=== PATIENT | female | born 1960 | race Caucasian/White ===

== ENCOUNTER 2023-09-03 14:39 | Emergency (ER) | payer SELFPAY ==
[~2023-09-03] VITALS: Ht 157 cm; Wt 79.3 kg
[~2023-09-03 14:39] MED LIST: FENO54TA PO; GLYB5TAB6 PO; METFOR850T PO; MTF500T PO; PNT40TEC PO; PRV20T PO
--- NOTE | 2023-09-03 15:26 | ED Fall/Injury ---
General Chief Complaint: Trauma-Non Activation Stated Complaint: LEFT SIDE INJ Nursing Triage Note: PT AMBULATES TO FT2, GUARDING LEFT SIDE. PT HAS FAMILY PRESENT, TRANSLATING FOR PT. 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 DENIES HITTING HEAD OR LOC. Source: patient, family Exam Limitations: language barrier History of Present Illness Date Seen by Provider: Sep 03, 2023 Time Seen by Provider: 15:18 Initial Comments 62-year-old female presents to the ER with complaint of left-sided rib pain after a fall. States that she tripped and fell landing on her left chest/left side. Denies hitting her head or losing consciousness. Allergies and Home Medications Allergies Coded Allergies: No Known Drug Allergies (Unverified , 04/14/13) Patient Home Medication List Home Medication List Reviewed: Yes Glyburide (Glyburide) 5 Mg Tablet, 1 EACH PO DAILY, (Reported) Entered as Reported by: KELIN PIRES on 11/02/14 1500 Hydrocodone/Acetaminophen (Hydrocodone-Acetamin 5-325 mg) 5 Mg-325 Mg Tablet, 1 TAB PO Q4H PRN for PAIN-MODERATE (5-7) Prescribed by: Elsa Isaacs on 09/03/23 1643 Metformin Hcl (Metformin 500 Mg) 500 Mg Tablet, 2 EACH PO BID WITH MEALS, (Reported) Entered as Reported by: KELIN PIRES on 11/02/14 1501 Review of Systems Review of Systems Constitutional: see HPI Past [id number]-[id number] Hx Immunizations Up To Date Influenza Vaccine Up-to-Date: Yes; Up-to-Date Past Medical History Reproductive Disorders: No 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 oz. 66.619186lg; 32.00 BMI Method: General Appearance: WD/WN, moderate distress Neck: supple, normal inspection Cardiovascular: regular rate, rhythm Respiratory: lungs clear, normal breath sounds, no respiratory distress, no accessory muscle use, other (Left chest and ribs tender to palpation) Extremities: normal range of motion, normal inspection Neurologic/Psychiatric: alert, normal mood/affect Skin: normal color, warm/dry Progress/Results/Core Measures Results/Orders My Orders Orders - ELSA SANCHEZ APRN Ketorolac Injection (Ketorolac Injection (09/03/23 15:30) Hydrocodone/Apap 5/325 Tablet (Hydrocod (09/03/23 15:30) Ribs/Unilateral With Chest (09/03/23 15:26) Medications Given in ED Current Medications Medications Dose Ordered Sig/Jana Route Start Time Stop Time Status Last Admin Dose Admin Acetaminophen/ Hydrocodone Bitart 1 ea ONCE ONCE PO 09/03/23 15:30 09/03/23 15:31 DC 09/03/23 15:48 1 EA Ketorolac Tromethamine 15 mg ONCE ONCE IM 09/03/23 15:30 09/03/23 15:31 DC 09/03/23 15:48 15 MG Vital Signs/I&O 09/03/23 09/03/23 15:05 16:50 Temp 36.9 Pulse 86 Resp 16 B/P (MAP) 147/77 (100) 135/90 Pulse Ox 96 O2 Delivery Room Air Blood Pressure Mean: 100 Progress Progress Note : Progress Note Patient seen and evaluated, resting in bed, moderate distress. Based on exam and symptoms, x-ray of chest and left ribs ordered. Toradol and hydrocodone ordered. 1641 x-ray reviewed. Negative for acute fracture. Results discussed with patient and family. Patient instructed to perform deep breathing and forceful coughing at home to prevent pneumonia. Will discharge with prescription for pain medication. Patient is stable for discharge. Discharge instructions and return precautions provided. Diagnostic Imaging Diagonstic Imaging: Xray Plain Films/CT/US/NM/MRI: chest Comments [facility], [place] NAME: RYLAN MARRERO [facility] REC#: [id number] PT STATUS: REG ER : 1960 PHYSICIAN: ELSA SANCHEZ APRN ADMIT DATE: 09/03/23/ER Signed Date of Exam:09/03/23 RIBS/UNILATERAL WITH CHEST INDICATION: Left-sided rib pain. FINDINGS: There is some minimal discoid atelectasis within the left lung. The lungs are otherwise clear. There is no pneumonia or edema. There is no evidence of an effusion or findings of a pneumothorax. The heart size is appropriate. The pulmonary vascularity is normal. The rib series demonstrates no identifiable left-sided rib fracture. IMPRESSION: No identifiable rib fracture, pleural fluid, or pneumothorax. There is some minimal discoid atelectasis in the left lung. Dictated by: Dictated on workstation # [id number] Dict: 09/03/23 1559 Trans: 09/03/23 1643 [id number] Interpreted by: LYNN PIERRE MD Electronically signed by: LYNN PIERRE MD 09/03/23 1643 Departure Impression Primary Impression: Rib contusion Disposition: 01 HOME, SELF-CARE Condition: Stable Departure-Patient Inst. Decision time for Depature: 16:41 Referrals: [facility] [place] PHYSIC[place] (PCP) Primary Care Physician Patient Instructions: Bruised Rib (DC) Add. Discharge Instructions: Take [place] as needed for pain. It may make you sleepy. It may also cause constipation. You may also take 800 mg of ibuprofen every 8 hours with food as needed for pain. Make sure you are taking deep breaths and coughing forcefully to prevent pneumonia. Hold a pillow against your chest to splint while taking a deep breath to help with pain. Follow-up with primary care provider if pain is not improving after several days. Return for severe shortness of breath, fever, or any other new, concerning, or worsening symptoms. All discharge instructions reviewed with patient and/or family. Voiced understanding. Scripts Hydrocodone/Acetaminophen (Hydrocodone-Acetamin 5-325 mg) 5 Mg-325 Mg Tablet 1 TAB PO Q4H PRN for PAIN-MODERATE (5-7), #15 TAB 0 Refills Prov: ELSA SANCHEZ APRN 09/03/23 ELSA SANCHEZ APRN Sep 03, 2023 15:26
[2023-09-03] MEDS ORDERED: HYDROcodone/ACETAMINOPHEN 5 MG/325 MG TABLET PO ONE (15:30)
[2023-09-03] MEDS ORDERED: KETOROLAC INJ 15 MG/ML VIAL IM ONE (15:30)
--- NOTE | 2023-09-03 16:08 | Diagnostic Imaging Report ---
INDICATION: Left-sided rib pain. FINDINGS: There is some minimal discoid atelectasis within the left lung. The lungs are otherwise clear. There is no pneumonia or edema. There is no evidence of an effusion or findings of a pneumothorax. The heart size is appropriate. The pulmonary vascularity is normal. The rib series demonstrates no identifiable left-sided rib fracture. IMPRESSION: No identifiable rib fracture, pleural fluid, or pneumothorax. There is some minimal discoid atelectasis in the left lung. Dictated by: Dictated on workstation # [id number]
[2023-09-03] MEDS ORDERED: ACHD5005 PO (16:43)
[2023-09-03 16:50] VITALS: BP 135/90
== END 2023-09-03 16:52 | disposition home or self-care (01) ==
LOC: EDUNIT# 14:39 → ER 14:41
DX: S20.212A Contusion of left front wall of thorax, initial encounter (principal); W01.0XXA Fall on same level from slipping, tripping and stumbling without subsequent striking against object, initial encounter
CPT/HCPCS: 71101; 96372; 99285